=== PATIENT | male | born 1955 | race Caucasian/White ===

== ENCOUNTER 2020-07-29 09:58 | Observation (INO) ==
[2020-07-29] MEDS ORDERED: PHENobarb/HYOSCY/ATROPINE/SCOP 1 DOSE BOTTLE PO ONE (10:15)
--- NOTE | 2020-07-29 10:29 | Emergency Department Note ---
Abdominal Pain HPI General Chief Complaint: Abdominal Pain Stated Complaint: abdominal pain and bloating Time Seen by Provider: 07/29/20 10:00 Source: patient Mode of arrival: ambulatory History of Present Illness HPI Narrative: Narrative: 65-year-old male patient returns emergency department after being recently discharged this morning at 0 800. Patient was here around 0 100 with chief complaint of upper abdominal pain. He was evaluated by a colleague and had a considerable work-up done. He had normal CBC, CMP, and urinalysis. Lipase was initially slightly elevated at 65. This was repeated at discharge and it did decrease to 25. Patient had a contrast-enhanced CT scan of his abdomen/pelvis that showed some diverticulosis, nonspecific mild dilatation of the jejunum of the left mid abdomen, mild fatty infiltration of the liver, an exophytic nodule anteriorly to the lower pole of the right kidney. The radiologist suspects this is likely a complex cyst rather than neoplasm. Patient was given IV hydration, Dilaudid, and Zofran. Afterwards, he was feeling much better and discharged home. He was discharged on oral Zofran as well as hydrocodone. He mentions he got home and took the antinausea medication. However his abdominal pain began to worsen. He did not take any of his prescribed hydrocodone and instead contacted his sister. She was worried and suspected he may have "pancreatitis" and asked him to return for further evaluation. Upon arrival to the emergency department once again patient is complaining of exquisite 10+/10 upper abdominal pain. It is unchanged in character or location from previous exam. It is in the epigastric area and extends down at the midline. He is requesting "the same medication I got a earlier because it really helped". He has had history of acid reflux and currently takes pantoprazole. He underwent both an upper and lower endoscopy on 04/14 and a review of that operative note shows they found 2 small superficial erosions or early ulcerations to the lower esophagus. ROS: Denies systemic illness, fever, sweats, chills. Denies headaches, tinnitus, or vision changes. Denies runny nose, sinus congestion, or cough. Denies shortness of breath. Denies retrosternal chest pain or palpitations. Denies dysuria, hematuria, urinary frequency, or urinary urgency. Denies generalized or focal weakness. Related Data Previous Rx's Medication Instructions Recorded pantoprazole 40 mg PO QDAY #60 tab 06/25/20 hydrocodone-acetaminophen 1 tab PO Q4H PRN #10 tab 07/29/20 ondansetron 4 mg PO Q6H PRN #10 tab 07/29/20 Allergies Allergy/AdvReac Type Severity Reaction Status Date / Time No Known Drug Allergies Allergy Verified 07/14/20 09:06 Review of Systems ROS ROS Narrative: Narrative: All systems ED: reviewed and negative except as stated. PFS Narrative Patient History Narrative: Narrative: Medical/Surgical/Family History All Active Problems (Updated 07/29/20 @ 16:27 by Heather Walters MD) Abdominal pain (Acute) Cholelithiasis and acute cholecystitis without obstruction (Acute) Refused influenza vaccine (Chronic) PTSD (post-traumatic stress disorder) (Chronic) TBI (traumatic brain injury) (Chronic) Skull fracture (Chronic) Burning sensation of eye (Chronic ~2016) Dizziness (Chronic ~2016) Neck pain (Chronic ~2016) Frequent headaches (Chronic ~2016) Migraines (Chronic ~12/2016) Insomnia (Chronic ~12/2016) Depression (Chronic ~12/2016) Daytime sleepiness (Chronic ~12/2016) Muscle pain (Chronic ~12/2016) Anxiety (Chronic ~12/2016) Acid reflux (Chronic ~01/2017) Medical History Acid reflux (Chronic ~01/2017) Anxiety (Chronic ~12/2016) Burning sensation of eye (Chronic ~2016) Daytime sleepiness (Chronic ~12/2016) Depression (Chronic ~12/2016) Dizziness (Chronic ~2016) Frequent headaches (Chronic ~2016) Insomnia (Chronic ~12/2016) Migraines (Chronic ~12/2016) Muscle pain (Chronic ~12/2016) Neck pain (Chronic ~2016) Refused influenza vaccine (Chronic) Skull fracture (Chronic) Surgical History History of brain surgery (Chronic ~2016) Skull fracture-Titanium plates and mesh History of hernia surgery (Chronic ~1989) History of sinus surgery (Chronic ~2017) Family History Mother Liver cancer Social History Smoking Status: Never smoker Alcohol Intake Frequency: a few times a week Substance Use: does not use Exam Narrative Narrative: Narrative: General General appearance: Present other (Well-developed, well-nourished, 65-year-old male patient laying semirecumbent on the emergency room gurney. He is in obvious discomfort and cradles his upper abdomen his hands. He is in no acute respiratory distress.) Head Head: Present normocephalic Eye Eye: Present normal appearance, PERRL and EOMI; Absent scleral icterus and co njunctival injection ENT ENT: Present normal oropharynx and mucous membranes moist Neck Neck: Present trachea midline; Absent lymphadenopathy Chest Chest: Present symmetric chest wall rise Respiratory Respiratory: Present normal lung sounds bilaterally; Absent respiratory distress, wheezes, stridor, accessory muscle use and prolonged expiratory phase Cardiovascular Cardiovascular: Present regular rate and normal rhythm; Absent systolic murmur and diastolic murmur Adbominal Abdominal: Present soft, tenderness, guarding and normal bowel sounds; Absent distention, rebound, rigidity, organomegaly and mass Expanded Abdominal Abdominal Tenderness: Present epigastrium and moderate Extremities Extremities: Present normal inspection, full ROM and normal capillary refill Back Back: Present normal inspection and full ROM Neurological Neurological: Present alert and oriented X3 Psychiatric Psychiatric: Present normal affect and anxious Skin Skin: Present warm (WNL), dry and normal color Course Course Course Narrative: The differential diagnosis for upper abdominal pain in the adult patient large and contains the following conditions. Predominately left sided: Splenomegaly, splenic infarct, splenic abscess, and splenic rupture. Predominately right sided: Biliary colic, acute cholecystitis, acute cholangitis, sphincter of Oddi dysfunction, acute hepatitis, perihepatitis (Kddz-Cwdm-Fipkpd syndrome), liver abscess, portal vein thrombosis, and Budd- Chiari syndrome. Patient was just discharged with emergency department about 2 hours ago for abdominal pain. He had an extensive work-up including laboratory studies and a contrast-enhanced CT scan of his abdomen/pelvis. The CT scan did not show any alarming findings. I reviewed the previous providers note mentions there was question about pancreatitis due to slight elevation in lipase. However this was repeated at discharge and had decreased down to normal range of 25. There was no evidence of pancreatitis on imaging. Patient is in the emergency department requesting more pain control and I am unsure why he did not take any of his previously prescribed hydrocodone. He has not deteriorated in any way. His vital signs in triage showed slight bradycardia with a heart rate of 57. All other vital signs within normal limits. At this time I am going to repeat a chemistry panel and a lipase level. I do not think there is benefit in repeat imaging at this time. I am going to treat his pain initially with a GI cocktail to see if this is helpful prior to providing any other opioid medication. Reevaluation(s) Reevaluation #1: A review of his diagnostics of the following: Chemistry panel glucose 122, all others normal limits. Repeat lipase is 28. Upon reevaluation patient is complaining of recurrent epigastric pain and bloating. He continues to ask "what is causing all the pain". I suspect some of his pain is associated with the ulceration is found on previous endoscopy several months ago. However, due to the acute worsening I have reached out to our general surgeon (Dr. Walters) to discuss the case prior to making a disposition decision. Time: 12:08 Reevaluation #2: Awaiting for discussion with Dr. Walters an ultrasound of the patient epigastric/right upper quadrant was ordered. Ultrasound did show multiple gallstones with thickened gallbladder wall and evidence of infection. Knowing this, Dr. Walters mentioned he would admit the patient here to our facility under the surgical service. He would then discussed surgical options with the patient. After reviewing all the data I discussed these findings with the patient. He is going to be admitted to the hospital under the care of Dr. Walters as mentioned. All further treatment decisions, modalities, and ultimate patient disposition will be carried out by Dr. Walters. Vital Signs Vital signs: Vital Signs Temperature 96.9 F L 07/29/20 09:59 Pulse Rate 57 L 07/29/20 09:59 Respiratory Rate 16 07/29/20 09:59 Blood Pressure 159/94 07/29/20 09:59 Pulse Oximetry (%) 98 07/29/20 09:59 Temperature 96.9 F L 07/29/20 17:03 Pulse Rate 50 L 07/29/20 17:03 Respiratory Rate 16 07/29/20 17:03 Blood Pressure 159/94 07/29/20 17:03 Pulse Oximetry (%) 95 07/29/20 17:03 [facility] MDM Narrative Medical decision making narrative: Narrative: Lab Data Lab results reviewed: Yes I reviewed the patient's lab results. Labs: Lab Results 07/29/20 Range/Units 10:28 POC Hct 50 (41-55) % POC Sodium 138 (133-145) mEq/L POC Potassium 4.0 (3.3-5.1) mEql/L POC Chloride 102 (96-108) mEq/L POC Total CO2 23 (22-30) mmol/L POC BUN 18 (6-20) mg/dL POC Creatinine 0.8 (0.6-1.2) mg/dL POC Glucose 122 H (70-105) mg/dL POC WB Ioniz Calcium 1.16 (1.16-1.32) mmEq/L Lipase 28 (7-60) U/L Radiology Data Radiology results reviewed: Yes I reviewed the patient's radiology results. Radiology results narrative: Ordering Physician: Robert Bernard PA-C Date of Service: 07/29/20 Procedure(s): US abdomen limited Accession Number(s): [id number] History: Severe epigastric pain FINDINGS: The gallbladder is filled with numerous stones. Although there is shadowing from the stones, no calcified stones were seen in the gallbladder and the preceding CT scan. The gallbladder wall is thickened measuring up to 3.9 mm and there is a small amount of pericholecystic fluid. The patient was tender while scanning over the gallbladder. The common bile duct measures 4.3 mm at the level of the pancreatic head. In the vinod hepatis the stones obscure the bile duct. The liver is normal in size. There is mild generalized fatty infiltration. There is a hypoechoic band of tissue in the gallbladder which probably represents sparing of normal liver surrounded by fatty infiltration. No ascites is present. The pancreas is largely obscured by overlying bowel gas and gallstones. IMPRESSION: Cholelithiasis and cholecystitis Robert Bernard was called with the results Interpreted and Authenticated by: Layton Lea 07/29/20 Discharge Plan Patient/Caregiver Discharge Instructions Pt seen by REEL STRIPPER/PA only: Yes Clinical Impression: Cholelithiasis and acute cholecystitis without obstruction Patient Disposition: Xfer As Inpt ([facility]) Condition: Good Discharge Date/Time: 07/29/20 17:04 Discharge Location: [facility]
[2020-07-29] MEDS ORDERED: 0.9 % SODIUM CHLORIDE 1,000 ML IV ONE (10:44)
[2020-07-29 10:49] LABS: POC Blood Urea Nitrogen 18 mg/dL (6-20); POC CO2 23 mmol/L (22-30); POC Calcium, Ionized 1.16 mmEq/L (1.16-1.32); POC Chloride 102 mEq/L (96-108); POC Creatinine 0.8 mg/dL (0.6-1.2); POC Glucose, Random 122 mg/dL (70-105); POC Hematocrit 50 % (41-55); POC Sodium 138 mEq/L (133-145)
[2020-07-29] MEDS ORDERED: HYDROmorphone 0.5 MG/0.5 ML SYRINGE IV ONE ×3 (11:00→14:56)
[2020-07-29] MEDS ORDERED: SUCRALFATE 1 GM/10 ML ORAL.SUSP PO ONE (13:32)
--- NOTE | 2020-07-29 15:45 | Ultrasound Report ---
History: Severe epigastric pain FINDINGS: The gallbladder is filled with numerous stones. Although there is shadowing from the stones, no calcified stones were seen in the gallbladder and the preceding CT scan. The gallbladder wall is thickened measuring up to 3.9 mm and there is a small amount of pericholecystic fluid. The patient was tender while scanning over the gallbladder. The common bile duct measures 4.3 mm at the level of the pancreatic head. In the vinod hepatis the stones obscure the bile duct. The liver is normal in size. There is mild generalized fatty infiltration. There is a hypoechoic band of tissue in the gallbladder which probably represents sparing of normal liver surrounded by fatty infiltration. No ascites is present. The pancreas is largely obscured by overlying bowel gas and gallstones. IMPRESSION: Cholelithiasis and cholecystitis Robert Bernard was called with the results Interpreted and Authenticated by: Layton Lea 07/29/20
[2020-07-29] MEDS ORDERED: traZODone HCL 50 MG TABLET PO PRN (16:28)
[2020-07-29] MEDS ORDERED: PROMETHAZINE 25 MG/ML VIAL IV PRN (16:28)
[2020-07-29] MEDS ORDERED: ONDANSETRON 4 MG/2 ML VIAL IV PRN (16:28)
--- NOTE | 2020-07-29 16:28 | General Surg History&Physical ---
HPI History of Present Illness Patient information: Note initiated : 07/29/20 at 4:22 pm Service Date, if different from initiated Date: [] Patient: Layton Baker a 65 y/o M admitted on for abdominal pain and bloating. Chief Complaint: [] Chief complaint: recurrent abdominal pain History of present illness: Mr. Baker is a 65 year old M admitted with acute cholecystitis and cholelithiasis. The patient had onset of severe epigastric pain with bloating and nausea about midnight. He was seen in the emergency room until 6 AM were all studies were essentially normal. He was discharged home but returned about 2 hours later because of exacerbation of pain. Lab work has not changed. Ultrasound was done which shows multiple gallstones with thickened gallbladder wall and pericholecystic fluid compatible with acute cholecystitis. Patient is admitted will have cholecystectomy in the morning. Review of Systems All systems: reviewed and no additional remarkable complaints except as stated PFSH PFSH All Active Problems (Updated 07/29/20 @ 16:27 by Heather Walters MD) Abdominal pain (Acute) Cholelithiasis and acute cholecystitis without obstruction (Acute) Refused influenza vaccine (Chronic) PTSD (post-traumatic stress disorder) (Chronic) TBI (traumatic brain injury) (Chronic) Skull fracture (Chronic) Burning sensation of eye (Chronic ~2016) Dizziness (Chronic ~2016) Neck pain (Chronic ~2016) Frequent headaches (Chronic ~2016) Migraines (Chronic ~12/2016) Insomnia (Chronic ~12/2016) Depression (Chronic ~12/2016) Daytime sleepiness (Chronic ~12/2016) Muscle pain (Chronic ~12/2016) Anxiety (Chronic ~12/2016) Acid reflux (Chronic ~01/2017) Medical History Acid reflux (Chronic ~01/2017) Anxiety (Chronic ~12/2016) Burning sensation of eye (Chronic ~2016) Daytime sleepiness (Chronic ~12/2016) Depression (Chronic ~12/2016) Dizziness (Chronic ~2016) Frequent headaches (Chronic ~2016) Insomnia (Chronic ~12/2016) Migraines (Chronic ~12/2016) Muscle pain (Chronic ~12/2016) Neck pain (Chronic ~2016) Refused influenza vaccine (Chronic) Skull fracture (Chronic) Surgical History History of brain surgery (Chronic ~2016) Skull fracture-Titanium plates and mesh History of hernia surgery (Chronic ~1989) History of sinus surgery (Chronic ~2017) Family History Mother Liver cancer Social History marital status: single smoking status: Never smoker alcohol intake frequency: a few times a week substance use type: does not use MEDS/ALLERGIES Home Medications and Allergies Home Medications Medication Instructions Recorded Confirmed Type pantoprazole 40 mg PO QDAY #60 tab 04/14/20 07/29/20 Rx hydrocodone-acetaminophen 1 tab PO Q4H PRN #10 tab 07/29/20 07/29/20 Rx ondansetron 4 mg PO Q6H PRN #10 tab 07/29/20 07/29/20 Rx Allergies Allergy/AdvReac Type Severity Reaction Status Date / Time No Known Drug Allergies Allergy Verified 07/14/20 09:06 Physical Examination Vital Signs Vital signs: Temp Pulse Resp BP Pulse Ox 96.9 F L 50 L 16 128/79 95 07/29/20 09:59 07/29/20 14:57 07/29/20 11:20 07/29/20 14:57 07/29/20 14:57 General physical appearance General physical exam: well developed, well nourished, severe distress and severe pain Eyes Eye exam: PERRL, normal ocular movement and pale ENT ENT exam: normal mucosa Head Head exam IM: Present atraumatic, normal inspection and normocephalic Neck Neck exam: no masses, no bruits, trachea midline, no lymphadenopathy and no venous distension Cardiovascular Cardiovascular exam IM: Present normal rate and rhythm, JVD, RRR, +S1 and +S2 Respiratory Respiratory exam: normal expansion, normal respiratory effort, clear to percussion and clear to auscultation Abdomen Abdomen: Present soft and tender (epigastric and right upper quadrant tenderness with guarding) Integumentary Integumentary: Present no rash, no growths and no abnormal pigmentation Neurologic Neurologic: Present normal coordination and normal sensation Musculoskeletal Musculoskeletal: Present normal gait and normal posture Results Labs Labs: Abnormal lab results 07/29/20 Range/Units 10:28 POC Glucose 122 H (70-105) mg/dL All other labs normal. A/P Assessment and plan (1) Cholelithiasis and acute cholecystitis without obstruction: Status: Acute (2) PTSD (post-traumatic stress disorder): Status: Chronic (3) TBI (traumatic brain injury): Status: Chronic Comment: 2017 Qualifiers: Encounter type: sequela Loss of consciousness presence/duration: with LOC of 30 min or less Qualified Code(s): S06.9X1S - Unspecified intracranial injury with loss of consciousness of 30 minutes or less, sequela (4) Depression: Status: Chronic Qualifiers: Depression Type: reactive depression Qualified Code(s): F32.9 - Major depressive disorder, single episode, unspecified (5) Anxiety: Status: Chronic (6) Acid reflux: Status: Chronic Qualifiers: Esophagitis presence: with esophagitis Esophagitis bleeding: without hemorrhage Qualified Code(s): K21.00 - Gastro-esophageal reflux disease with e sophagitis, without bleeding Narrative A/P Narrative: patient is admitted for pain control and antibiotics. He is scheduled for laparoscopic cholecystectomy which will be performed tomorrow morning. Time Spent With Patient Time: Total time spent is greater than 50% in coordination of care (as documented) at patient's floor/unit and/or counseling patient:
--- NOTE | 2020-07-29 17:05 | XRay Report ---
HISTORY: Preop for cholecystectomy There is a thick band of discoid atelectasis above the right diaphragm. Lungs are otherwise clear. The heart size and pulmonary vasculature are normal. No pleural effusion or free intra-abdominal air are present. IMPRESSION: Discoid atelectasis in the right lower lobe Interpreted and Authenticated by: Layton Lea 07/29/20
[2020-07-29] MEDS: HYDROmorphone 1 MG/ML SYRINGE IV PRN ×3 (17:29→22:42)
[2020-07-29] MEDS: 0.9 % SODIUM CHLORIDE 1,000 ML IV SCH (17:59)
[2020-07-29] MEDS: PIPERACILLIN SODIUM/TAZOBACTAM 3.375 GM in DEXTROSE 5% IN WATER 50 ML IV SCH (18:05)
[2020-07-29] MEDS: DOCUSATE SODIUM 100 MG CAPSULE PO SCH (20:24)
[2020-07-29] MEDS: 0.9 % SODIUM CHLORIDE 10 ML SYRINGE IV SCH (20:24)
[2020-07-29] MEDS ORDERED: SENNOSIDES 1 TABLET PO SCH (21:00)
[2020-07-30] MEDS: PIPERACILLIN SODIUM/TAZOBACTAM 3.375 GM in DEXTROSE 5% IN WATER 50 ML IV SCH ×5 (00:12→23:55)
[2020-07-30] MEDS: HYDROmorphone 1 MG/ML SYRINGE IV PRN ×6 (00:59→19:51)
[2020-07-30] MEDS: 0.9 % SODIUM CHLORIDE 1,000 ML IV SCH ×5 (01:43→21:04)
[2020-07-30] MEDS: 0.9 % SODIUM CHLORIDE 10 ML SYRINGE IV SCH ×3 (05:08→21:05)
[2020-07-30] MEDS ORDERED: IPRATROPIUM/ALBUTEROL 3 ML AMPUL.NEB NEB PRN ×2 (06:00→09:55)
[2020-07-30] MEDS ORDERED: SCOPOLAMINE 1 PATCH PATCH TOPICAL PRN (06:00)
[2020-07-30 07:13] LABS: Basophils # (Auto) 0.05 K/mcL (0.00-0.20); Basophils % (Auto) 0.4 % (0.0-2.0); Eosinophils # (Auto) 0.11 K/mcL (0.00-0.70); Eosinophils % (Auto) 0.9 % (0.0-7.0); Hemoglobin 14.3 g/dL (13.5-16.5); Lymphocytes # (Auto) 1.42 K/mcL (1.50-4.80); Mean Cell Volume 94.3 fL (80.0-100.0); Mean Corpuscular HGB Conc 33.3 g/dL (31.0-36.0); Monocytes # (Auto) 1.21 K/mcL (0.10-0.90); Monocytes % (Auto) 9.4 % (1.0-12.0); Neutrophils % (Auto) 78.3 % (38.0-78.0); Platelet Count 215 K/mcL (140-440); RBC 4.56 M/mcL (4.50-5.90); Red Cell Distribution Width 13.9 % (11.5-14.5); WBC 12.9 K/mcL (4.5-11.0)
[2020-07-30 07:55] LABS: ALT/SGPT 64 U/L (<40); AST/SGOT 61 U/L (<40); Albumin 3.7 gm/dL (3.2-5.2); Albumin/Globulin Ratio 1.6 (1.0-2.3); Alkaline Phosphatase 45 U/L (39-117); Bilirubin,Direct 0.3 mg/dL (<0.3); Bilirubin,Total 1.1 mg/dL (0.1-1.0); Blood Urea Nitrogen 11 mg/dL (8-23); Calcium 8.5 mg/dL (8.6-10.4); Carbon Dioxide 26 mmol/L (22-30); Chloride 100 mmol/L (96-108); Globulin 2.3 gm/dL (2.2-3.7); Glomerular Filtration Rate 90; Glucose 99 mg/dL (70-105); Lactate Dehydrogenase 104 U/L (135-225); Phosphorous 2.2 mg/dL (2.5-4.5); Triglycerides 67 mg/dL (<150); Uric Acid 4.4 mg/dL (2.5-8.0)
[2020-07-30] MEDS: DOCUSATE SODIUM 100 MG CAPSULE PO SCH ×2 (07:55→21:04)
[2020-07-30] MEDS ORDERED: fentaNYL 100 MCG/2 ML VIAL IV ONE (08:55)
[2020-07-30] MEDS ORDERED: ROCURONIUM 10 MG/ML ML IV ONE (08:55)
[2020-07-30] MEDS ORDERED: LIDOCAINE HCL/PF 100 MG/5 ML SYRINGE IV ONE (08:55)
[2020-07-30] MEDS ORDERED: ONDANSETRON 4 MG/2 ML VIAL ONE (08:55)
[2020-07-30] MEDS ORDERED: PROPOFOL 200 MG/20 ML VIAL IV ONE (08:55)
[2020-07-30] MEDS ORDERED: SUCCINYLCHOLINE 20 MG/ML ML IV ONE (08:55)
[2020-07-30] MEDS ORDERED: DEXAMETHASONE 10 MG/ML VIAL ONE (08:55)
[2020-07-30] MEDS ORDERED: KETAMINE 100 MG/ML ML ONE (08:55)
[2020-07-30] MEDS ORDERED: ePHEDrine 50 MG/ML AMPUL IV ONE (08:55)
[2020-07-30] MEDS ORDERED: PHENYLEPHRINE 10 MG/ML VIAL ONE (08:55)
[2020-07-30] MEDS ORDERED: ePHEDrine 50 MG/ML AMPUL IV PRN (09:55)
[2020-07-30] MEDS ORDERED: FLUMAZENIL 0.1 MG/ML ML IV PRN (09:55)
[2020-07-30] MEDS ORDERED: ACETAMINOPHEN 1,000 MG/100 ML BOTTLE IV ONE (09:55)
[2020-07-30] MEDS ORDERED: ONDANSETRON 4 MG/2 ML VIAL IV PRN ×2 (09:55→11:25)
[2020-07-30] MEDS ORDERED: diphenhydrAMINE 50 MG/ML VIAL IV PRN (09:55)
[2020-07-30] MEDS ORDERED: METHOCARBAMOL 1,000 MG/10 ML VIAL IV PRN (09:55)
[2020-07-30] MEDS ORDERED: MEPERIDINE 25 MG/ML SYRINGE IV PRN (09:55)
[2020-07-30] MEDS ORDERED: NALOXONE HCL 0.4 MG/ML VIAL IV PRN (09:55)
[2020-07-30] MEDS ORDERED: PROMETHAZINE 25 MG/ML VIAL IM PRN (09:55)
[2020-07-30] MEDS ORDERED: fentaNYL 100 MCG/2 ML VIAL IV PRN (09:55)
[2020-07-30] MEDS ORDERED: ATROPINE SULFATE 0.4 MG/ML VIAL IV PRN (09:55)
[2020-07-30] MEDS ORDERED: LACTATED RINGERS 1,000 ML IV SCH (10:00)
--- NOTE | 2020-07-30 10:25 | Brief Operative Note ---
Brief Operative Note Date of procedure: 07/30/20 Pre-op diagnosis: ACUTE CHOLECYSTITIS WITH CHOLELITHIASIS Post-op diagnosis: other (ACUTE CHOLECYSTITIS WITH CHOLELITHIASIS) Procedure: LAPAROSCOPIC CHOLECYSTECTOMY Grafts/Implants: No (JOHN DRAIN X1) Anesthesia: GETA Findings: ACUTE SEVERE INFLAMMATION OF GALLBLADDER WITH MULTIPLE STONES Complications: none Surgeon: Heather Walters Estimated blood loss (cc): 35 Specimens Removed/Pathology: other (GALLBLADDER WITH STONES) Condition: stable Disposition: PACU
[2020-07-30] MEDS ORDERED: PROMETHAZINE 25 MG/ML VIAL IV PRN (11:25)
[2020-07-30] MEDS: ACETAMINOPHEN 1,000 MG/100 ML BOTTLE IV SCH ×3 (14:13→23:55)
[2020-07-30] MEDS: oxyCODONE HCL 5 MG TABLET PO PRN ×2 (18:52→22:51)
[2020-07-30] MEDS ORDERED: SENNOSIDES 1 TABLET PO SCH (21:00)
[2020-07-30] MEDS ORDERED: traZODone HCL 50 MG TABLET PO PRN (21:00)
[2020-07-31] MEDS: oxyCODONE HCL 5 MG TABLET PO PRN ×2 (03:04→07:34)
[2020-07-31] MEDS: 0.9 % SODIUM CHLORIDE 1,000 ML IV SCH ×3 (04:44→09:56)
[2020-07-31] MEDS: PIPERACILLIN SODIUM/TAZOBACTAM 3.375 GM in DEXTROSE 5% IN WATER 50 ML IV SCH ×2 (05:06→11:11)
[2020-07-31] MEDS: ACETAMINOPHEN 1,000 MG/100 ML BOTTLE IV SCH ×2 (05:06→11:12)
[2020-07-31] MEDS: 0.9 % SODIUM CHLORIDE 10 ML SYRINGE IV SCH ×2 (05:07→13:38)
[2020-07-31] MEDS: DOCUSATE SODIUM 100 MG CAPSULE PO SCH (07:35)
--- NOTE | 2020-07-31 13:00 | Discharge Summary ---
Discharge Provider Provider Patient information: Note initiated : 07/31/20 at 12:55 pm Service Date, if different from initiated Date: [] Patient: Layton Baker 65 y/o M admitted on 07/29/20 for abdominal pain and bloating. Chief Complaint: [] Date of admission: 07/29/20 17:04 Discharge date: 07/31/20 Primary care physician: Les Humphries PA-C Admitting clinician: Heather Brown Attending physician on admission: Heather Brown Consults: 07/29/20 15:44 Consult to Physician [CONS] Stat Comment: Consulting Provider: Heather Brown Reason For Exam: Physician to Consult Attending physician on discharge: martin brown Discharging clinician: Heather Brown COURSE Hospital Course Hospital course: 65-year-old male admitted with a three-day history of severe epigastric right upper quadrant pain with nausea and vomiting. Initial evaluation was normal so he was discharged home. He returned an hour later because his pain became more severe and was radiating through to his back. Ultrasound of the upper abdomen was done and this showed gallbladder compacted with stones with wall edema and pericholecystic fluid. He was admitted and underwent laparoscopic cholecystectomy on yesterday. He has done very well and is stable for discharge home Discharge diagnosis: .acute cholecystitis with cholelithiasis Reason for admission: right upper quadrant pain with nausea and vomiting Procedures: laparoscopic cholecystectomy Pertinent studies/significant findings: CT of abdomen and pelvis with Contrast Upper abdominal ultrasound Complications: none Time Spent with Patient Time attestation: Total time spent providing and/or coordinating discharge services: Physical Examination Vital Signs Vital signs: Temp Pulse Resp BP Pulse Ox 98.7 F 56 L 18 104/66 98 07/31/20 11:47 07/31/20 11:47 07/31/20 11:47 07/31/20 11:47 07/31/20 11:47 General physical appearance General physical exam: well developed, well nourished, no distress and no pain Eyes Eye exam: PERRL and normal ocular movement ENT ENT exam: normal pinna, normal nares, normal mucosa and no congestion Head Head exam IM: Present atraumatic, normal inspection and normocephalic Neck Neck exam: no masses, no bruits, trachea midline, no lymphadenopathy and no venous distension Cardiovascular Cardiovascular exam IM: Present normal rate and rhythm, RRR, +S1 and +S2; Absent gallop and JVD Respiratory Respiratory exam: normal expansion, normal respiratory effort, clear to percussion and clear to auscultation Abdomen Abdomen: Present soft and tender (mild tenderness around the sites otherwise benign) Integumentary Integumentary: Present no rash, no growths and no abnormal pigmentation Neurologic Neurologic: Present normal coordination and normal sensation Musculoskeletal Musculoskeletal: Present normal gait and normal posture Psychiatric Psychiatric: Present oriented to time, oriented to person, oriented to place, speech is normal and memory intact Discharge Plan Patient/Caregiver Discharge Instructions Activity: increase activity as tolerated Diet: Regular Diet and Low Fat Instructions: Low Fat Diet (DC), Laparoscopic Cholecystectomy (DC) Prescriptions: New oxycodone-acetaminophen [Endocet] 10-325 mg Tablet 1 tab PO Q4H PRN (Reason: Pain) Qty: 40 RF: 0 levofloxacin [levofloxacin] 750 MG tablet 750 mg PO DAILY Qty: 7 RF: 0 Continued pantoprazole 40 mg Tablet,Delayed Release (Dr/Ec) 40 mg PO QDAY Qty: 60 RF: 5 ondansetron 4 mg tablet,disintegrating 4 mg PO Q6H PRN (Reason: nausea and vomiting) Qty: 10 RF: 0 Discontinued hydrocodone-acetaminophen 5-325 mg tablet 1 tab PO Q4H PRN (Reason: pain) Qty: 10 RF: 0 Follow Up Plan Follow up with: Les Humphries PA-C [Primary Care Provider] - Heather Brown MD [Physician] - 08/15/20 (Contact the office on Saturday to confirm appointment on 08/15/20) Patient Disposition: Home, Self-Care Hospital Course: patient had an uneventful hospital course Prognosis: Good Rehab Potential: Good I certify that the patient requires SNF services: No Overall status at discharge: patient is progressing back to baseline Discharge Orders: Discharge Order (Routine); Ordered 07/31/20 Ordered By: Heather Brown Pending Pending Pending: Resuscitation Status Full Code Diet Full Liquid Diet Start Sat Jul 30 1026 Docusate Sodium (Colace) 100 mg PO BID TRISH Last Admin: 07/31/20 07:35 Dose: 100 mg Documented by: [email or web address] Admin: 07/30/20 21:04 Dose: 100 mg Documented by: AARON Hydromorphone HCl (Dilaudid) 1 mg IV Q2HP PRN; Protocol PRN Reason: Per Pain Protocol Last Admin: 07/30/20 19:51 Dose: 1 mg Documented by: Admin: 07/30/20 14:14 Dose: 1 mg Documented by: CAROLE Sodium Chloride (Sodium Chloride 0.9%) 1,000 mls @ 125 mls/hr IV .Q8H [facility] Last Admin: 07/31/20 09:56 Dose: Not Given Documented by: Admin: 07/31/20 07:35 Dose: 125 mls/hr Documented by: Infusion: 07/31/20 05:04 Dose: 125 mls/hr Documented by: Admin: 07/31/20 04:44 Dose: Not Given Documented by: Admin: 07/30/20 21:04 Dose: 125 mls/hr Documented by: Infusion: 07/30/20 20:24 Dose: 125 mls/hr Documented by: Admin: 07/30/20 12:24 Dose: 125 mls/hr Documented by: CAROLE Piperacillin Sod/Tazobactam (Sod 3.375 gm/ Dextrose) 50 mls @ 100 mls/hr IV Q6H [facility]; Protocol Last Infusion: 07/31/20 11:59 Dose: 0 mls/hr Documented by: Admin: 07/31/20 11:11 Dose: 100 mls/hr Documented by: Infusion: 07/31/20 05:39 Dose: 0 mls/hr Documented by: Admin: 07/31/20 05:06 Dose: 100 mls/hr Documented by: Infusion: 07/31/20 00:28 Dose: 0 mls/hr Documented by: Admin: 07/30/20 23:55 Dose: 100 mls/hr Documented by: Infusion: 07/30/20 18:45 Dose: 0 mls/hr Documented by: Admin: 07/30/20 18:00 Dose: 100 mls/hr Documented by: Infusion: 07/30/20 12:29 Dose: 0 mls/hr Documented by: Admin: 07/30/20 12:25 Dose: 100 mls/hr Documented by: CAROLE Acetaminophen (Ofirmev) 1,000 mg in 100 mls @ 200 mls/hr IV Q6H [facility]; Protocol Last Infusion: 07/31/20 11:57 Dose: 0 mls/hr Documented by: Admin: 07/31/20 11:12 Dose: 200 mls/hr Documented by: Infusion: 07/31/20 05:39 Dose: 0 mls/hr Documented by: Admin: 07/31/20 05:06 Dose: 200 mls/hr Documented by: Infusion: 07/31/20 00:27 Dose: 0 mls/hr Documented by: Admin: 07/30/20 23:55 Dose: 200 mls/hr Documented by: Infusion: 07/30/20 18:44 Dose: 0 mls/hr Documented by: Admin: 07/30/20 18:01 Dose: 200 mls/hr Documented by: Admin: 07/30/20 14:13 Dose: Not Given Documented by: CAROLE Oxycodone HCl (Roxicodone) 10 mg PO Q4HP PRN; Protocol PRN Reason: Per Pain Protocol Last Admin: 07/31/20 07:34 Dose: 10 mg Documented by: Admin: 07/31/20 03:04 Dose: 10 mg Documented by: Admin: 07/30/20 22:51 Dose: 10 mg Documented by: Admin: 07/30/20 18:52 Dose: 10 mg Documented by: AARON Senna (Senokot) 2 tab PO HS TRISH Last Admin: 07/30/20 21:04 Dose: 2 tab Documented by: AARON Sodium Chloride (Saline Flush) 10 ml IV Q8 TR[facility] Last Admin: 07/31/20 05:07 Dose: Not Given Documented by: Admin: 07/30/20 21:05 Dose: Not Given Documented by: Admin: 07/30/20 14:14 Dose: 10 ml Documented by: SMHALL Trazodone HCl (Desyrel) 50 mg PO HSP PRN PRN Reason: Insomnia Last Admin: 07/30/20 21:04 Dose: 50 mg Documented by: AARON Shift Summary 07/31/20 04:02 Shift Summary by Patti Cam AOX4. Up with SBA. 2 lapsites and CRIS drain to right side draining serous. Roxicodone 10 mg Q4H prn to control pain with 1 X dilaudid during the night. Patient walked in the hallways last night. Will update at bedside. Initialized on 07/31/20 04:02 - END OF NOTE
--- NOTE | 2020-08-02 14:28 | Surgical Pathology Report ---
Histology Microscopic Diagnosis Specimen A- GALLBLADDER, CHOLECYSTECTOMY: -- GANGRENOUS ACUTE/CHRONIC CHOLECYSTITIS WITH CHOLELITHIASIS. (ACP:sln) Procedural Impression Cholelithiasis/cholecystitis. Gross Description Received in formalin labeled gallbladder, is a purple-crockett gallbladder specimen that is 10.8 x 5.4 by up to 3.1 cm. The majority of the serosa is smooth and glistening with approximately 35% roughened brown-crockett. Within the roughened area there are two rough edged openings measuring 1.5 and 2.5 cm in greatest dimension. There are three metal clamps present, one on the cystic duct. The mucosa is smooth and bile stained green crockett with possible areas of necrotic tissue. The wall is up to 0.3 cm thick. Within the gallbladder and container are multiple smooth surfaced yellow-crockett stones ranging in size from 0.3 to 2.2 cm in greatest dimension. [employer] Player sections submitted in one cassette. (KGW:sln) Electronically Signed Barry Lea MD, FCAP Electronically Signed 08/02/2020 2:26 PM
--- NOTE | 2020-08-05 14:52 | Operative Note ---
DATE OF OPERATION: 07/30/2020 PREOPERATIVE DIAGNOSIS: Acute cholecystitis with cholelithiasis. POSTOPERATIVE DIAGNOSIS: Acute cholecystitis with cholelithiasis. PROCEDURE: Laparoscopic cholecystectomy. SURGEON: Heather Walters M.D. FINDINGS: Acute severe inflammation of the gallbladder with multiple stones. DESCRIPTION OF PROCEDURE: Under general anesthesia, the patient's abdomen was prepped and draped in a sterile field. Supraumbilical incision was made and Veress needle was inserted. Abdomen was insufflated with 3 liters of CO2. A 12 mm port was placed. Laparoscope was placed. The gallbladder was densely inflamed and dilated. Under videoscopic guidance, a 12 mm port and two 5 mm ports were placed in the right subcostal region. The gallbladder was decompressed with a Weck needle. It was then grasped and positioned. Cystic duct was dissected and followed back to the gallbladder. Cystic artery branch was dissected and followed onto the wall of the gallbladder. Cystic duct was clipped with five clips and divided. Cystic artery branch was clipped with four clips and divided. The gallbladder was then from the infrahepatic bed using electrocautery and blunt dissection. It was placed in an Endopouch and retrieved. Some stones that spilled were removed with the Jorge stone forceps. Irrigation was carried out. Hemostasis in the bed was achieved. A #10 Ethan drain was placed and brought out through the most lateral port site. CO2 was allowed to escape from the abdomen and the ports were removed. The fascia at the umbilicus was closed with 0 Vicryl. Port site incisions were closed with stoney. Tegaderm dressings were placed. The patient tolerated the procedure well. He was awakened and transferred to a bed and taken to the postanesthetic care unit in stable, satisfactory condition. LCS:michaela Job ID: [id number] Doc ID: [id number] Heather Walters M.D.
== END 2020-07-31 14:26 | disposition home or self-care (01) ==
LOC: MEDSUR 09:58 → ED 09:58 → MEDSUR 15:04
PROVIDERS: ADMIT Family Medicine Adult Medicine; ATTEND Family Medicine Adult Medicine